=== PATIENT | male | born 1950 | race Caucasian/White ===

== ENCOUNTER 2018-02-24 17:45 | Emergency (ER) | payer MEDICARE ==
[2018-02-24 18:25] LABS: BASO % 0 % (0-3); EOS # 0.1 x10^3/uL (0.0-0.7); EOS % 1 % (0-3); HEMATOCRIT 40.6 % (39.0-53.0); HEMOGLOBIN 14.5 g/dL (13.0-17.5); LYMPH # 1.2 x10^3/uL (1.0-4.8); LYMPH % 11 % (24-48); MEAN CORPUSCULAR HEMOGLOBIN 35 pg (25-35); MEAN CORPUSCULAR HGB CONC 36 g/dL (31-37); MEAN CORPUSCULAR VOLUME 98 fL (79-100); MONO # 1.6 x10^3/uL (0.0-1.1); MONO % 14 % (0-9); NEUT # 8.3 x10^3uL (1.8-7.7); NEUT % 74 % (31-73); PLATELET COUNT 126 x10^3/uL (140-400); RED BLOOD COUNT 4.13 x10^6/uL (4.30-5.70); RED CELL DISTRIBUTION WIDTH 13.6 % (11.5-14.5); WHITE BLOOD COUNT 11.3 x10^3/uL (4.0-11.0)
[2018-02-24 18:34] LABS: ANION GAP 9 (6-14); BLOOD UREA NITROGEN 13 mg/dL (8-26); BUN/CREATININE RATIO 22 (6-20); CALCIUM 7.7 mg/dL (8.5-10.1); CARBON DIOXIDE 24 mmol/L (21-32); CHLORIDE 102 mmol/L (98-107); CREATININE 0.6 mg/dL (0.7-1.3); GFR 134.4; GLUCOSE 115 mg/dL (70-99); SODIUM 135 mmol/L (136-145)
[2018-02-24 18:36] LABS: POTASSIUM 4.3 mmol/L (3.5-5.1)
[2018-02-24 18:41] LABS: ALBUMIN 1.6 g/dL (3.4-5.0); ALBUMIN/GLOBULIN RATIO 0.4 (1.0-1.7); ALK PHOS 581 U/L (46-116); ALT (SGPT) 116 U/L (16-63); AST (SGOT) 155 U/L (15-37); TOTAL BILIRUBIN 12.9 mg/dL (0.2-1.0); TOTAL PROTEIN 5.4 g/dL (6.4-8.2)
[2018-02-24 18:44] LABS: NT-PRO BNP 481 pg/mL (0-124)
[2018-02-24 18:56] LABS: ADD MAN DIFF? YES
[2018-02-24 19:05] LABS: % BANDS 1 % (0-9); % BASOS 1 % (0-3); % LYMPHS 11 % (24-48); % MONOS 10 % (0-10); % SEGS 77 % (35-66)
[2018-02-24 19:06] LABS: PLT ESTIMATE DECREASED (ADEQUATE)
[2018-02-24 19:07] LABS: TOXIC VACUOLATION SLIGHT
[2018-02-24] MEDS: FUROSEMIDE 40 MG/4 ML VIAL. IVP (19:58)
[2018-02-24] MEDS: IPRATRPIUM/ALBUTEROL 0.5/2.5MG 3 ML NEBU. NEB (20:21)
== END 2018-02-24 20:55 | disposition home or self-care (01) ==
LOC: ER 17:45
DX: R22.41 Localized swelling, mass and lump, right lower limb (principal); E78.00 Pure hypercholesterolemia, unspecified; J44.9 Chronic obstructive pulmonary disease, unspecified; I11.9 Hypertensive heart disease without heart failure; F10.20 Alcohol dependence, uncomplicated
CPT/HCPCS: 36415; 71045; 80053; 83880; 85007; 85025; 93971; 94640; 96374; 99285-25; J1940; J7620

== ENCOUNTER 2018-03-10 14:14 | Inpatient (IN) | payer MEDICARE, OTHER ==
[2018-03-10] MEDS ORDERED: VANCOMYCIN PER PHARMACY MC (14:45)
[2018-03-10 15:15] LABS: BASO % 0 % (0-3); EOS # 0.6 x10^3/uL (0.0-0.7); EOS % 3 % (0-3); HEMOGLOBIN 13.7 g/dL (13.0-17.5); LYMPH # 0.4 x10^3/uL (1.0-4.8); LYMPH % 2 % (24-48); MEAN CORPUSCULAR HEMOGLOBIN 34 pg (25-35); MEAN CORPUSCULAR HGB CONC 34 g/dL (31-37); MEAN CORPUSCULAR VOLUME 100 fL (79-100); MONO # 0.9 x10^3/uL (0.0-1.1); MONO % 5 % (0-9); NEUT # 15.9 x10^3uL (1.8-7.7); NEUT % 89 % (31-73); PLATELET COUNT 130 x10^3/uL (140-400); RED BLOOD COUNT 3.99 x10^6/uL (4.30-5.70); RED CELL DISTRIBUTION WIDTH 14.3 % (11.5-14.5); WHITE BLOOD COUNT 17.8 x10^3/uL (4.0-11.0)
[2018-03-10 15:16] LABS: ADD MAN DIFF? YES
[2018-03-10 15:25] LABS: INR 1.8 (0.8-1.1); PARTIAL THROMBOPLASTIN TIME 45 SEC (24-38); PROTHROMBIN TIME PATIENT 20.1 SEC (11.7-14.0)
[2018-03-10 15:30] LABS: AMMONIA 12 mcmol/L (11-34)
[2018-03-10] MEDS: PIPERACILLIN/TAZOBACTAM 4.5 GM in IV NORMAL SALINE 100ML 100 ML IV (15:37)
[2018-03-10] MEDS: IV NORMAL SALINE 1000ML BAG 1,000 ML IV (15:37)
[2018-03-10 15:40] LABS: ETHANOL < 10 mg/dL (0-10)
[2018-03-10 15:42] LABS: % BANDS 23 % (0-9); % LYMPHS 5 % (24-48); % MONOS 4 % (0-10); % SEGS 68 % (35-66); ANION GAP 14 (6-14); BLOOD UREA NITROGEN 39 mg/dL (8-26); BUN/CREATININE RATIO 26 (6-20); CARBON DIOXIDE 21 mmol/L (21-32); CHLORIDE 97 mmol/L (98-107); CREATININE 1.5 mg/dL (0.7-1.3); GFR 46.7; GLUCOSE 63 mg/dL (70-99); SODIUM 132 mmol/L (136-145)
[2018-03-10 15:43] LABS: PLT ESTIMATE DECREASED (ADEQUATE)
[2018-03-10 15:44] LABS: POTASSIUM 5.5 mmol/L (3.5-5.1); TOXIC GRANULATION MOD; TOXIC VACUOLATION MOD
[2018-03-10] MEDS ORDERED: CONTRAST GIVEN MC (15:45)
[2018-03-10 15:49] LABS: CKMB INDEX 4.8 % (0-4); CKMB MASS 13.5 ng/mL (0.0-3.6); CREATINE KINASE 281 U/L (39-308)
[2018-03-10 15:51] LABS: ALBUMIN 1.9 g/dL (3.4-5.0); ALBUMIN/GLOBULIN RATIO 0.5 (1.0-1.7); LIPASE 82 U/L (73-393); TOTAL PROTEIN 5.9 g/dL (6.4-8.2)
[2018-03-10 15:52] LABS: NT-PRO BNP 19731 pg/mL (0-124)
[2018-03-10] MEDS: IV DEXTROSE 5% - 0.9 % NACL 1,000 ML IV (15:58)
[2018-03-10 16:05] LABS: LACTIC ACID 4.8 mmol/L (0.4-2.0)
[2018-03-10] MEDS: IOHEXOL 300 MG/ML 100ML VIAL. IV (16:10)
[2018-03-10] MEDS ORDERED: ASPIRIN 325 MG TABLET PO (16:15)
[2018-03-10 16:22] LABS: ALK PHOS 484 U/L (46-116); ALT (SGPT) 1387 U/L (16-63)
[2018-03-10 16:27] LABS: DIRECT BILIRUBIN 19.6 mg/dL (0.0-0.2)
[2018-03-10 16:43] LABS: PROCALCITONIN 32.98 ng/mL (0.00-0.10)
[2018-03-10 16:43] LABS: AST (SGOT) 3154 U/L (15-37)
[2018-03-10] MEDS: VANCOMYCIN 1.5 GM in IV DEXTROSE 5% 500 ML IV (17:00)
[2018-03-10] MEDS ORDERED: chlordiazePOXIDE HCL 25 MG CAPSULE PO (17:30)
[2018-03-10] MEDS ORDERED: ONDANSETRON PF 4 MG/2 ML VIAL. IV (17:30)
[2018-03-10] MEDS ORDERED: HYDROcodone/APAP 5/325MG 1 TAB TABLET PO (17:30)
[2018-03-10] MEDS ORDERED: PIP/TAZO PER PHARMACY MC (17:30)
[2018-03-10] MEDS ORDERED: TEMAZEPAM 7.5 MG CAPSULE PO (17:30)
[2018-03-10] MEDS ORDERED: ACETAMINOPHEN 500 MG TABLET PO (17:30)
[2018-03-10] MEDS ORDERED: AMIODARONE 150 MG/3 ML VIAL (18:44)
[2018-03-10 19:27] LABS: TROPONINI 9.061 ng/mL (0.000-0.055)
[2018-03-10 19:42] LABS: LACTIC ACID 4.3 mmol/L (0.4-2.0)
[2018-03-10] MEDS: PIPERACILLIN/TAZOBACTAM 3.375 GM in IV NORMAL SALINE 50ML 50 ML IV (21:21)
[2018-03-10] MEDS: ALPRAZolam 0.25 MG TABLET PO (21:36)
[2018-03-10] MEDS ORDERED: METOPROLOL TARTRATE 5 MG/5 ML VIAL. IVP (23:00)
[2018-03-10] MEDS: METOPROLOL TARTRATE 5 MG/5 ML VIAL. IVP (23:09)
[2018-03-10] MEDS: NOREPINEPHRIN PREMIX 250 ML IV (23:15)
[2018-03-10 23:21] LABS: TROPONINI 10.946 ng/mL (0.000-0.055)
[2018-03-11] MEDS: PIPERACILLIN/TAZOBACTAM 3.375 GM in IV NORMAL SALINE 50ML 50 ML IV ×3 (00:29→12:35)
[2018-03-11] MEDS: MORPHINE SULFATE 4 MG/ML DISP.SYRIN. IV (00:29)
[2018-03-11 07:15] LABS: ADD MAN DIFF? NO
[2018-03-11] MEDS: PANTOPRAZOLE 40 MG TABLET.DR. PO (07:30)
[2018-03-11 07:31] LABS: BASO # 0.1 x10^3/uL (0.0-0.2); BASO % 1 % (0-3); EOS # 0.6 x10^3/uL (0.0-0.7); EOS % 3 % (0-3); HEMATOCRIT 36.8 % (39.0-53.0); HEMOGLOBIN 12.7 g/dL (13.0-17.5); LYMPH # 0.7 x10^3/uL (1.0-4.8); LYMPH % 3 % (24-48); MEAN CORPUSCULAR HEMOGLOBIN 35 pg (25-35); MEAN CORPUSCULAR HGB CONC 35 g/dL (31-37); MEAN CORPUSCULAR VOLUME 101 fL (79-100); MONO # 1.5 x10^3/uL (0.0-1.1); MONO % 7 % (0-9); NEUT # 19.3 x10^3uL (1.8-7.7); NEUT % 87 % (31-73); PLATELET COUNT 83 x10^3/uL (140-400); RED BLOOD COUNT 3.65 x10^6/uL (4.30-5.70); RED CELL DISTRIBUTION WIDTH 13.8 % (11.5-14.5); WHITE BLOOD COUNT 22.2 x10^3/uL (4.0-11.0)
[2018-03-11 07:48] LABS: LACTIC ACID 5.1 mmol/L (0.4-2.0)
[2018-03-11 07:54] LABS: ALBUMIN 1.6 g/dL (3.4-5.0); ANION GAP 17 (6-14); BLOOD UREA NITROGEN 47 mg/dL (8-26); CALCIUM 7.8 mg/dL (8.5-10.1); CARBON DIOXIDE 17 mmol/L (21-32); CHLORIDE 101 mmol/L (98-107); CREATININE 1.8 mg/dL (0.7-1.3); GFR 37.8; GLUCOSE 106 mg/dL (70-99); PHOSPHORUS 4.4 mg/dL (2.6-4.7); POTASSIUM 4.7 mmol/L (3.5-5.1); SODIUM 135 mmol/L (136-145)
[2018-03-11] MEDS: FOLIC ACID 1 MG TABLET. PO (08:13)
[2018-03-11] MEDS: LACTOBACILLUS RHAMNOSUS GG 1 CAPSULE. PO (08:13)
[2018-03-11] MEDS: IV NORMAL SALINE 1000ML BAG 1,000 ML IV ×4 (08:13→14:46)
[2018-03-11] MEDS: SPIRONOLACTONE 25 MG TABLET PO (08:13)
[2018-03-11] MEDS: MICAFUNGIN 100 MG in IV NORMAL SALINE 100ML 100 ML IV (09:17)
[2018-03-11 09:59] LABS: ALBUMIN 1.6 g/dL (3.4-5.0); ALK PHOS 521 U/L (46-116); AST (SGOT) 600 U/L (15-37); TOTAL PROTEIN 5.2 g/dL (6.4-8.2)
[2018-03-11 10:02] LABS: ALT (SGPT) 1266 U/L (16-63); DIRECT BILIRUBIN 19.3 mg/dL (0.0-0.2)
[2018-03-11] MEDS: NOREPINEPHRIN PREMIX 250 ML IV (12:33)
[2018-03-11 14:20] LABS: MRSA BY PCR Negative (Negative)
[2018-03-11] MEDS ORDERED: oxyCODONE/APAP 5/325 1 TAB TABLET PO (15:00)
[2018-03-11] MEDS ORDERED: ONDANSETRON PF 4 MG/2 ML VIAL. IV (15:00)
[2018-03-11] MEDS ORDERED: MORPHINE SULFATE 4 MG/ML DISP.SYRIN. IV ×2 (15:00→15:15)
[2018-03-11] MEDS: ALPRAZolam 0.25 MG TABLET PO (19:37)
[2018-03-12] MEDS: IV NORMAL SALINE 1000ML BAG 1,000 ML IV (03:50)
[2018-03-12] MEDS: ALPRAZolam 0.25 MG TABLET PO (04:19)
[2018-03-12 05:12] LABS: ADD MAN DIFF? NO
[2018-03-12 05:20] LABS: BASO # 0.1 x10^3/uL (0.0-0.2); BASO % 0 % (0-3); EOS # 0.6 x10^3/uL (0.0-0.7); EOS % 4 % (0-3); HEMATOCRIT 37.9 % (39.0-53.0); HEMOGLOBIN 13.1 g/dL (13.0-17.5); LYMPH # 0.6 x10^3/uL (1.0-4.8); LYMPH % 4 % (24-48); MEAN CORPUSCULAR HEMOGLOBIN 35 pg (25-35); MEAN CORPUSCULAR HGB CONC 35 g/dL (31-37); MEAN CORPUSCULAR VOLUME 100 fL (79-100); MONO # 1.6 x10^3/uL (0.0-1.1); MONO % 10 % (0-9); NEUT # 14.1 x10^3uL (1.8-7.7); NEUT % 83 % (31-73); PLATELET COUNT 60 x10^3/uL (140-400); RED BLOOD COUNT 3.79 x10^6/uL (4.30-5.70); RED CELL DISTRIBUTION WIDTH 14.1 % (11.5-14.5)
[2018-03-12 05:49] LABS: LACTIC ACID 3.5 mmol/L (0.4-2.0)
[2018-03-12 06:20] LABS: ALBUMIN 1.5 g/dL (3.4-5.0); ALBUMIN/GLOBULIN RATIO 0.4 (1.0-1.7); ALK PHOS 478 U/L (46-116); ANION GAP 15 (6-14); BLOOD UREA NITROGEN 48 mg/dL (8-26); BUN/CREATININE RATIO 34 (6-20); CALCIUM 7.6 mg/dL (8.5-10.1); CARBON DIOXIDE 18 mmol/L (21-32); CHLORIDE 104 mmol/L (98-107); CREATININE 1.4 mg/dL (0.7-1.3); GFR 50.5; GLUCOSE 66 mg/dL (70-99); POTASSIUM 4.2 mmol/L (3.5-5.1); SODIUM 137 mmol/L (136-145)
[2018-03-12 06:44] LABS: ALT (SGPT) 1147 U/L (16-63); AST (SGOT) 2030 U/L (15-37); TOTAL BILIRUBIN 25.9 mg/dL (0.2-1.0)
== END 2018-03-12 12:15 | disposition hospice, home (50) | DRG 871 ==
LOC: ER 14:14 → 1 WEST ICU 17:05
DX: A41.9 Sepsis, unspecified organism (principal); I21.4 Non-ST elevation (NSTEMI) myocardial infarction; K72.00 Acute and subacute hepatic failure without coma; E43 Unspecified severe protein-calorie malnutrition; K75.0 Abscess of liver; K76.7 Hepatorenal syndrome; C22.1 Intrahepatic bile duct carcinoma; E87.2 Acidosis; D68.9 Coagulation defect, unspecified; N17.0 Acute kidney failure with tubular necrosis; R65.21 Severe sepsis with septic shock; T76.91XA Unspecified adult maltreatment, suspected, initial encounter; L02.211 Cutaneous abscess of abdominal wall; D69.6 Thrombocytopenia, unspecified; J44.9 Chronic obstructive pulmonary disease, unspecified; K74.60 Unspecified cirrhosis of liver; I25.10 Atherosclerotic heart disease of native coronary artery without angina pectoris; E78.00 Pure hypercholesterolemia, unspecified; I10 Essential (primary) hypertension; F17.210 Nicotine dependence, cigarettes, uncomplicated; F41.9 Anxiety disorder, unspecified; M19.90 Unspecified osteoarthritis, unspecified site; E78.5 Hyperlipidemia, unspecified; Z95.5 Presence of coronary angioplasty implant and graft; Z51.5 Encounter for palliative care; Z85.05 Personal history of malignant neoplasm of liver; Z66 Do not resuscitate; I73.9 Peripheral vascular disease, unspecified; Z68.23 Body mass index [BMI] 23.0-23.9, adult; Z86.79 Personal history of other diseases of the circulatory system; F10.10 Alcohol abuse, uncomplicated
CPT/HCPCS: 36415; 71045; 74177; 80053; 80069; 80076; 82140; 82248; 82553; 83605; 83690; 83735; 83880; 84145; 84484; 85007; 85025; 85610; 85730; 86850; 86900; 86901; 87040; 87205; 87641; 93005; 96365; 96366; 96368; 99291; 99291-25; G0480; J2020; J2248; J2270; J2543; J3370; J3490; J7030; J7042; Q9967